=== PATIENT | female | born 1980 ===

== ENCOUNTER 2018-05-23 07:09 | Emergency (ER) | payer OTHER ==
[~2018-05-23] VITALS: Ht 167.6 cm; Wt 68.0 kg
[2018-05-23] MEDS ORDERED: INTESTINEX680 M1 PO (08:44)
[2018-05-23] MEDS ORDERED: PROTONIX40 MG PO (08:44)
[2018-05-23] MEDS ORDERED: ANTI-DIARRHEA2 MG PO (08:58)
== END 2018-05-23 09:09 | disposition home or self-care (01) ==
LOC: ER 07:09
DX: R19.7 Diarrhea, unspecified (principal)